=== PATIENT | female | born 1995 | race African-American/Black ===

== ENCOUNTER 2022-05-23 14:58 | Outpatient (CLI) | payer OTHER, SELFPAY | END 2022-05-23 14:59 | disposition home or self-care (01) | LOC: NFLDREF 15:03 | PROVIDERS: Visit Provider Obstetrics & Gynecology | DX: Z34.91 Encounter for supervision of normal pregnancy, unspecified, first trimester (principal) | CPT/HCPCS: 84702 ==

== ENCOUNTER 2022-06-03 14:13 | Outpatient (CLI) | payer OTHER, SELFPAY | END 2022-06-03 14:14 | disposition home or self-care (01) | LOC: NFLDREF 14:14 | PROVIDERS: Visit Provider Obstetrics & Gynecology | DX: Z33.2 Encounter for elective termination of pregnancy (principal) | CPT/HCPCS: 84702 ==